=== PATIENT | female | born 1965 | race Caucasian/White ===

== ENCOUNTER → 2019-06-12 14:14 | Outpatient (CLI) | payer BC, SELFPAY ==
[2019-06-12 12:11] VITALS: BMI 25.8
== END ==
PROVIDERS: Family Provider Family Medicine; PCP Family Medicine; Referring Provider Physician Assistant; Visit Provider Physician Assistant
DX: L03.113 Cellulitis of right upper limb (principal)
CPT/HCPCS: 87070; 87077; 87186; 87205

== ENCOUNTER → 2023-09-03 | Outpatient (CLI) | payer OTHER, SELFPAY ==
--- OUTSIDE RECORDS SUMMARY | 2023-08-27 07:52 | XMS RPT_ITS | CCD ---
Author Name Unknown Address [id number] [place] [address] Organization [facility] Care Team Providers Care Catalyst Operator Name Role Phone [email or web address], physician Unavailable Unavailable Torrey Kenyon Unavailable Unavailable Torrey Kenyon Unavailable Unavailable KEDAR QUEEN, DR CARY Primary Care Physician ([phone] ) KEDAR DO, DR CARY Primary Care Physician ([phone] ) KEDAR DO, DR CARY Primary Care Physician ([phone] JOHN RENE MD Attending Unavailable KEDAR DO, DR CARY Primary Care Unavailable JOHN RENE MD Attending Unavailable KEDAR DO, DR CARY Primary Care Unavailable AZAEL LARSON PA-C Attending Unavailable KEDAR DO, DR CARY Primary Care Unavailable KEDAR DO, DR CARY Attending Unavailable KEDAR DO, DR CARY Primary Care Unavailable KEDAR DO, DR CARY Attending Unavailable KEDAR DO, DR CARY Primary Care Unavailable KEDAR DO, DR CARY Attending Unavailable KEDAR DO, DR CARY Primary Care Unavailable KEDAR DO, DR CARY Attending Unavailable KEDAR DO, DR CARY Primary Care Unavailable LAINE CORONA, DR TEJADA Attending Unavailabl e KEDAR DO, DR CARY Primary Care Unavailable DARCI ARELLANO-BRAD, BRITT Skelton Attending [place] vailable KEDAR QUEEN, DR CARY Primary Care Unavailable JOHN RENE MD Attending Unavailable KEDAR , DR CARY Primary Care Unavailable Medications Current Medications Medication Drug Class(es) Dates Sig (Normalized) Sig (Original) acetaminophen 325 mg / butalbital 50 mg / caffeine 40 mg oral tablet (5 sources) Barbiturate, Central Nervous System Stimulant, Methylxanthine Start: 01-20-2023 APAP/butalbital/ca ffeine 325-50-40 mg oral tablet (Fioricet) TAKE 1 CAPSULE BY MOUTH NEEDED AT THE ONSET OF MIGRAINE. MAY REPEAT IN 8 HOURS. DO NOT TAKE MORE THAN 2 CAPSULES IN 24 HOURS OR MORE THAN 10 CAPSULES PER MONTH. Start Date: 01/20/23 Status: Ordered Ajovy Autoinjector 225 mg/1.5 mL subcutaneous solution (1 source) Start: 10-28-2021 inject 225 mg by subcutaneous injection every month Ajovy Autoinjector 225 mg/1.5 mL subcutaneous solution INJECT 225 MG EVERY MONTH BY SUBCUTANEOUS ROUTE. Start Date: 10/28/21 Status: Ordered amitriptyline hydrochloride 50 mg oral tablet (11 sources) Tricyclic Antidepressant Start: 03-10-2022 amitriptyline 50 mg oral tablet Dose : 50 mg = 1 tab(s), Oral, qHS, 0 Refill(s) Start Date: 03/10/22 Status: Ordered Completed/Discontinued Medications Medication Drug Class(es) Dates Sig (Normalized) Sig (Original) gabapentin 300 mg oral capsule (8 sources) Anti-epileptic Agent Start: 09-09-2022 End: 03-08-2023 gabapentin 300 mg oral capsule Dose : 300 mg = 1 cap(s), Oral, BID, # 60 cap(s), 5 Refill(s), Pharmacy: [facility], Cervical spondylosis without myelopathy, 172, cm, 09/09/22 7:49:00 EST, Height, 84.1, kg, 09/09/22 7:49:00 EST, Dosing Weight Start Date: 09/09/22 Stop Date: 03/08/23 Status: Ordered Problems Problem Classification Problem Date Documented Da te Episodic/Chronic Abdominal hernia (13 sources) Hiatal hernia 10-24-2020 Episodic Anxiety disorders (13 sources) Anxiety 04-07-2019 Chronic Chronic kidney disease (13 sources) Chronic kidney disease stage 3 10-24-2020 Chronic Diabetes mellitus without complication (13 sources) Hyperglycemia 06-06-2020 Episodic Disorders of lipid metabolism (13 sources) Hyperlipidemia 02-18-2021 Chronic Headache; including migraine (13 sources) Migraine 04-07-2019 Chronic Miscellaneous mental health disorders (13 sources) Primary insomnia 04-07-2019 Chronic Mood disorders (13 sources) Depressive disorder; Translations: [Major depression in remission] 04-07-2019 Chronic Other acquired deformities (12 sources) Stenosis of intervertebral foramina 10-28-2021 Episodic Other and unspecified benign neoplasm (13 sources) Lipoma (clinical) 03-28-2020 Episodic Other bone disease and musculoskeletal deformities (5 sources) Cervical somatic dysfunction 01-27-2023 Episodic Other bone disease and musculoskeletal deformities (5 sources) Somatic dysfunction of rib 01-27-2023 Episodic Other bone disease and musculoskeletal deformities (5 sources) Somatic dysfunction of thoracic region 01-27-2023 Episodic Other bone disease and musculoskeletal deformities (5 sources) Somatic dysfunction of upper limb 01-27-2023 Episodic Other gastrointestinal disorders (13 sources) Dysphagia 06-06-2020 Episodic Other nervous system disorders (13 sources) Carpal tunnel syndrome 04-07-2019 Chronic Other nervous system disorders (1 source) Carpal tunnel syndrome of left wrist; Translations: [Carpal tunnel syndrome, left upper limb] Chronic Other nutritional; endocrine; and metabolic disorders (5 sources) Overweight 01-27-2023 Episodic Other nutritional; endocrine; and metabolic disorders (5 sources) Overweight in adulthood with body mass index of 25 or more but less than 30 01-27-2023 Episodic Residual codes; unclassified (1 source) Past history of procedure; Translations: [Other specified postprocedural states] Episodic Screening and history of mental health and substance abuse codes (5 sources) Tobacco use and exposure - finding 01-27-2023 Chronic Spondylosis; intervertebral disc disorders; other back problems (17 sources) Cervical spondylosis without myelopathy; Translations: [Degeneration of cervical intervertebral disc] 10-28-2021 Chronic Spondylosis; intervertebral disc disorders; other back problems (20 sources) Low back pain; Translations: [Neck pain] Onset: 03-15-2023 02-18-2021 Episodic Results Test Name Value Interpretation Reference Range Facil ity Vital Signs Date Time Vital Sign Value Performing Clinician Faci lity 04-23-2023 09:02-0400 Diastolic Blood Pressure Non-Invasive [address] MALLORY JANG MD [facility] 04-23-2023 09:02-0400 Heart rate 75 /min DR MALLORY JANG MD [facility] 04-23-2023 09:02-0400 Respiratory rate 16 /min DR MALLORY JANG MD [facility] 04-23-2023 09:02-0400 Systolic Blood Pressure Non-Invasive [address] MALLORY JANG MD [facility] 04-23-2023 08:57-0400 Body temperature 97.7 [degF] DR MALLORY JANG MD [facility] 04-23-2023 08:57-0400 Diastolic Blood Pressure Non-Invasive [address] MALLORY JANG MD [facility] 04-23-2023 08:57-0400 Heart rate 75 /min DR MALLORY JANG MD [facility] 04-23-2023 08:57-0400 Respiratory rate 18 /min DR MALLORY JANG MD [facility] 04-23-2023 08:57-0400 Systolic Blood Pressure Non-Invasive [address] MALLORY JANG MD [facility] 04-23-2023 08:50-0400 Diastolic Blood Pressure Non-Invasive [address] MALLORY JANG MD [facility] 04-23-2023 08:50-0400 Heart rate 73 /min DR MALLORY JANG MD [facility] 04-23-2023 08:50-0400 Respiratory Rate - Anes 15 br/min DR MALLORY JANG MD [facility] 04-23-2023 08:50-0400 Systolic Blood Pressure Non-Invasive [address] MALLORY JANG MD [facility] 04-23-2023 08:45-0400 Respiratory Rate - Anes 16 br/min DR MALLORY JANG MD [facility] 04-23-2023 08:40-0400 Respiratory Rate - Anes 15 br/min DR MALLORY JANG MD [facility] 04-23-2023 07:47-0400 Body height 172.[address] MALLORY JANG MD [facility] 04-23-2023 07:47-0400 Body temperature 98.42 [degF] DR MALLORY JANG MD [facility] 04-23-2023 07:47-0400 Body weight 84.[address] MALLORY JANG MD [facility] 04-23-2023 07:47-0400 Heart rate 110 /min DR MALLORY JANG MD [facility] 04-23-2023 07:47-0400 Respiratory rate 15 /min DR MALLORY JANG MD [facility] 03-15-2023 11:55-0400 Diastolic Blood Pressure Non-Invasive 77 1 JOHN RENE MD [facility] 03-15-2023 11:55-0400 Heart rate 82 /min JOHN RENE MD [facility] 03-15-2023 11:55-0400 Respiratory rate 18 /min JOHN RENE MD [facility] 03-15-2023 11:55-0400 Systolic Blood Pressure Non-Invasive 142 1 JOHN RENE MD [facility] 03-15-2023 11:24-0400 Blood Pressure Cuff Size JOHN RENE MD [facility] 03-15-2023 11:24-0400 Blood Pressure Location JOHN RENE MD [facility] 03-15-2023 11:24-0400 Blood Pressure Method JOHN RENE MD [facility] 03-15-2023 11:24-0400 Body height 172.7 cm JOHN RENE MD [facility] 03-15-2023 11:24-0400 Body temperature 97.16 [degF] JOHN RENE MD [facility] 03-15-2023 11:24-0400 Body weight 84.1 kg JOHN RENE MD [facility] 03-15-2023 11:24-0400 Body weight 28.2 kg/m2 JOHN RENE MD [facility] 03-15-2023 11:24-0400 Diastolic Blood Pressure Non-Invasive 99 1 JOHN RENE MD [facility] 03-15-2023 11:24-0400 Heart rate 86 /min JOHN RENE MD [facility] 03-15-2023 11:24-0400 Respiratory rate 19 /min JOHN RENE MD [facility] 03-15-2023 11:24-0400 Systolic Blood Pressure Non-Invasive 146 1 JOHN RENE MD [facility] Encounters Encounter Date Encounter Type Care Provider Facility Start: 07-20-2023 End: 07-21-[address] RAEANN THACKER DO Facility:B Start: 07-20-2023 End: 07-20-[address] RAEANN THACKER DO [facility] Start: 07-02-2023 End: 07-03-[address] RAEANN THACKER DO Facility:[facility] Start: 07-02-2023 End: 07-02-[address] RAEANN THACKER DO [facility] Start: 06-08-2023 End: 07-14-2023 ambulatory AZAEL LARSON PA-C Facility:[facility] Start: 04-23-2023 End: 04-23-[address] MALLORY JANG MD Facility:[facility] Start: 04-23-2023 End: 04-23-[address] MALLORY JANG MD [facility] Start: 03-15-2023 End: 03-16-[address] RAEANN THACKER DO Facility:[facility] Start: 03-15-2023 End: 03-15-2023 SAME DAY STAY JOHN RENE MD [facility] Start: 02-15-2023 End: 02-16-2023 ambulatory JOHN RENE MD Facility:[facility] Start: 01-20-2023 End: 01-21-2023 ambulatory JOHN RENE MD Facility:[facility] Start: 09-09-2022 End: 09-10-2022 ambulatory BRITT BEJARANO [employer] REPA[employer] Facility:[facility] Start: 09-08-2022 End: 09-09-[address] RAEANN THACKER DO Facility:[facility] Start: 09-08-2022 End: 09-09-[address] RAEANN THACKER DO [facility] Start: 06-27-2022 End: 06-27-[address] RAEANN THACKER DO [facility] Start: 03-10-2022 End: 03-10-2022 Patient encounter procedure ALANA PATEL MD [facility] Start: 03-06-2022 End: 03-06-[address] RAEANN THACKER DO [facility] Start: 12-09-2021 End: 12-09-2021 Patient encounter procedure ALANA PATEL MD [facility] Start: 10-28-2021 End: 10-28-2021 Patient encounter procedure ALANA PATEL MD [facility] Start: 10-14-2021 End: 10-14-2021 Patient encounter procedure YOVANI PHILLIPS DO [facility] Start: 06-28-2017 Ambulatory physician [facility] Procedures Date Procedure Procedure Detail Performing Clinician Start: 06-24-2023 Carpal tunnel syndro me of right wrist (disorder) DR RAEANN THACKER DO Start: 06-08-2023 End: 07-14-2023 Occupational therapy AZAEL LARSON PA-C Start: 05-06-2023 Carpal tunnel syndro me of left wrist (disorder) DR RAEANN THACKER DO Start: 03-15-2023 PM Inj Spine C/T [facility] 1 JOHN RENE MD Immunizations Immunization Date Immunization Notes Care Provider [facility] 06-04-2023 influenza virus vaccine, unspecified formulation DR RAEANN THACKER DO [facility] 06-04-2023 SARS-CoV-2 (COVID-19 ) [id number] DR RAEANN THACKER DO [facility] 05-25-[address] RAEANN THACKER DO [facility] 03-26-[address] RAEANN THACKER DO [facility] 09-11-2022 COVID-19, mRNA, LNP- S, bivalent booster, PF, 30 mcg/0.3 mL dose; Translations: [[employer] COVID-19 (12y+) Bivalent Booster Vaccine PF] JOHN RENE MD [facility] 07-22-2022 influenza virus vaccine, unspecified formulation DR RAEANN THACKER DO [facility] 03-17-2022 COVID-19, mRNA, LNP- S, PF, 100 mcg or 50 mcg dose; Translations: [Moderna COVID-19 Vaccine] DR RAEANN THACKER DO [facility] 09-02-2021 SARS-CoV-2 (COVID-19 ) mRNA-1273 vaccine YOVANI PHILLIPS DO [facility] 11-27-2020 SARS-CoV-2 (COVID-19 ) mRNA-1273 vaccine YOVANI PHILLIPS DO [facility] 10-30-2020 SARS-CoV-2 (COVID-19 ) mRNA-1273 vaccine YOVANICYNTHIA PHILLIPS DO [facility] Payers Date Payer Category Payer Unknown [id number] 1965 Unknown [id number] 2.16.8 [id number] 1965 Unknown [id number] 2.16.8 [id number] 1965 Unknown [id number] 2.16.8 [id number] 1965 Unknown [id number] 2.16.8 [id number] 1965 Unknown [id number] 2.16.8 [id number] 1965 Unknown [id number] 2.16.8 [id number] 1965 Unknown [id number] 2.16.8 [id number] 1965 Unknown [id number] 2.16.8 [id number] 1965 Unknown [id number] 2.16.8 [id number] 1965 Unknown [id number] 2.16.8 [id number] Private Health Insurance Social History Date Type Detail Facility Start: 08-02-2019 Never smoked tobacco (f inding) [facility] Functional Status Date Assessment Result Facility 04-23-2023 Functional Status Repositioned back [facility] 04-23-2023 Functional Status Maintained [facility] 03-15-2023 Functional Status Awake [facility] Mental Status Date Assessment Result Facility 04-23-2023 Mental Status Oriented x 4 [facility] 03-15-2023 Mental Status Oriented x 4 [facility] Clinical Notes 03-15-2023 to 07-20-2023 Radiology Note Date & Type Note Facility 07-20-2023 Evaluation + Plan note Future Scheduled TestsCT Coronary Calcium Score w/o Contrast [facility] H[facility] AN D PHYSICIAL CHIEF COMPLAINT: HISTORY OF PRESENT ILLNESS: REVIEW OF SYSTEMS: ACTIVE PROBLEMS: (24) Anxiety (04562220) BMI 29.0-29.9,adult (1126880462) Carpal tunnel syndrome (41105400) Cervical spondylosis without myelopathy (592579106) Cervical stenosis of spine (110071244) CKD (chronic kidney disease) stage 3, GFR 30-59 ml/min (6371174377) DDD (degenerative disc disease), cervical (567223495) Dysphagia (61338004) Hiatal hernia (972673505) HLD (hyperlipidemia) (87508732) Hyperglycemia (964729149) Lipoma (019511479) Low back pain (331673872) Major depressive disorder in remission (44879123) Migraine (78905597) Neck pain (625000061) Neural foraminal stenosis of cervical spine (1422324456) Non-tobacco user (0265740785) Overweight (840438708) Primary insomnia (5174447) Somatic dysfunction of cervical region (7202938306) Somatic dysfunction of rib region (5186386036) Somatic dysfunction of thoracic region (0394835114) Somatic dysfunction of upper extremity (1996188973) MEDICATIONS: Active Inpt Meds: None Active PRN Meds: None One Time Meds: (Completed) lidocaine (Xylocaine-MPF 2% injectable solution (ANES)) Intravenous, Once, Stop: 04/23/23 8:36:00 EDT (Completed) propofol (propofol (ANES)) IV Push, Once, Stop: 04/23/23 8:36:00 EDT Active IV Meds: Lactated Ringers Infusion 1,000 mL (LR 1,000 mL) Start: 04/23/23 7:53:00 EDT, Rate: 50 mL/hr, 04/23/23 7:53:00 EDT ALLERGIES: (1) NKA FAMILY HISTORY: SOCIAL HISTORY: PHYSICAL EXAM: VITALS: [id number](kg) 04/23 08:50----73--98.5--04/23 84.4 04/23 08:45----71--98.5-- 04/23 08:40----73--98.8-- 04/23 08:35----76--99.1-- 04/23 08:30----81--100-- 24 Hr Tmax: 36.9 at 04/23 07:47 36 Hr Tmax: 36.9 at 04/23 07:47 Vital Signs are the last 5 in the past 48 hours. Weights display the last 5 within 7 days. Initial Wt: 04/23 84.4 kg 186 lb Current Wt: 04/23 84.4 kg 186 lb GENERAL: HEENT: CARDIOVASCULAR: RESPIRATORY: ABDOMEN: EXREMETIES: NEUROLOGICAL: PSYCHIATRIC: LABS: No 36hr Lab Data DIAGNOSTICS: IMPRESSION: PLAN: History and Physical Update I have examined the patient; reviewed the H&P and there are no changes to the H&P unless noted below. Future Appointments Appointment Date:06/28/2023 03:30:00 PM Scheduled Provider: Location:[facility] Appointment Type:MA Mammogram Screening Bilateral w/ Lenny Appointment Date:08/27/2023 08:30:00 AM Scheduled Provider:RAEANN THACKER DO Location:[facility] Appointment Type:[facility] Future Scheduled Tests Laboratory* Thyroid Stimulating Hormone 09/26/23 * A1C Hemoglobin 09/26/23 * Complete Blood Count 09/26/23 * Lipid Profile 09/26/23 * Vitamin D Level 09/26/23 * Complete Metabolic Panel 09/26/23 Radiology* MA Mammo Screening Bilateral w/ Lenny 06/28/23 [facility] 08-25-2023 Hospital Discharge instructions Patient Education 04/23/2023 09:06:53 Monitored Anesthesia Care, Care After Monitored Anesthesia Care, Care After These instructions provide you with information about caring for yourself after your procedure. Your health care provider may also give you more specific instructions. Your treatment has been plannedaccording to current medical practices, but problems sometimes occur. Call your health care provider if you have any problems or questions after your procedure. What can I expect after the procedure? After your procedure, you may: Feel sleepy for several hours. Feel clumsy and have poor balance for several hours. Feel forgetful about what happened after the procedure. Have poor judgment for several hours. Feel nauseous or vomit. Have a sore throat if you had a breathing tube during the procedure. Follow these instructions at home: For at least 24 hours after the procedure: Have a responsible adult stay with you. It is important to have someone help care for you until youare awake and alert. Rest as needed. Do not: ?Participate in activities in which you could fall or become injured. ?Drive. ?Use heavy machinery. ?Drink alcohol. ?Take sleeping pills or medicines that cause drowsiness. ?Make important decisions or sign legal documents. ?Take care of children on your own. Eating and drinking Follow the diet that is recommended by your health care provider. If you vomit, drink water, juice, or soup when you can drink without vomiting. Make sure you have little or no nausea before eating solid foods. General instructions Take odxu-ouo-wlextsk and prescription medicines only as told by your health care provider. If you have sleep apnea, surgery and certain medicines can increase your risk for breathing problems. Follow instructions from your health care provider about wearing your sleep device: ?Anytime you are sleeping, including during daytime naps. ?While taking prescription pain medicines, sleeping medicines, or medicines that make you drowsy. If you smoke, do not smoke without supervision. Keep all follow-up visits as told by your health care provider. This is important. Contact a health care provider if: You keep feeling nauseous or you keep vomiting. You feel light-headed. You develop a rash. You have a fever. Get help right away if: You have trouble breathing. Summary For several hours after your procedure, you may feel sleepy and have poor judgment. Have a responsible adult stay with you for at least 24 hours or until you are awake and alert. This information is not intended to replace advice given to you by your health care provider. Make sure you discuss any questions you have with your health care provider. Document Released: 12/06/2016 Document Revised: 11/14/2018 Document Reviewed: 12/06/2016 [employer] Patient Education 2020 [employer]. 04/23/2023 09:06:50 Colonoscopy, Adult, Care After Colonoscopy, Adult, Care After This sheet gives you information about how to care for yourself after your procedure. Your health care provider may also give you more specific instructions. If you have problems or questions, contact your health care provider. What can I expect after the procedure? After the procedure, it is common to have: A small amount of blood in your stool for 24 hours after the procedure. Some gas. Mild abdominal cramping or bloating. Follow these instructions at home: General instructions For the first 24 hours after the procedure: ?Do not drive or use machinery. ?Do not sign important documents. ?Do not drink alcohol. ?Do your regular daily activities at a slower pace than normal. ?Eat soft, isup-ke-jcthdn foods. Take wtuu-yzd-uawxenw or prescription medicines only as told by your health care provider. Relieving cramping and bloating Try walking around when you have cramps or feel bloated. Apply heat to your abdomen as told by your health care provider. Use a heat source that your healthcare provider recommends, such as a moist heat pack or a heating pad. ?Place a towel between your skin and the heat source. ?Leave the heat on for 20 30 minutes. ?Remove the heat if your skin turns bright red. This is especially important if you are unable to feel pain, heat, or cold. You may have a greater risk of getting burned. Eating and drinking Drink enough fluid to keep your urine pale yellow. Resume your normal diet as instructed by your health care provider. Avoid heavy or fried foods thatare hard to digest. Avoid drinking alcohol for as long as instructed by your health care provider. Contact a health care provider if: You have blood in your stool 2 3 days after the procedure. Get help right away if: You have more than a small spotting of blood in your stool. You pass large blood clots in your stool. Your abdomen is swollen. You have nausea or vomiting. You have a fever. You have increasing abdominal pain that is not relieved with medicine. Summary After the procedure, it is common to have a small amount of blood in your stool. You may also have mild abdominal cramping and bloating. For the first 24 hours after the procedure, do not drive or use machinery, sign important documents, or drink alcohol. Contact your health care provider if you have a lot of blood in your stool, nausea or vomiting, a fever, or increased abdominal pain. This information is not intended to replace advice given to you by your health care provider. Make sure you discuss any questions you have with your health care provider. Document Released: 03/30/2005 Document Revised: 06/08/2018 Document Reviewed: 10/27/2016 [employer] Patient Education 2020 [employer]. Follow Up Care 04/19/2023 12:09:25 With:MALLORY JANG MD [address] [facility] [address] [place] [address] [phone] When: only if needed [facility] 08-25-2023 Summary of episode note Discharge Instructions Thank you for allowing [facility] to assist you with your healthcare needs. The following is importantdischarge information regarding your hospital visit. Your Care Team RAEANN THACKER DO What to do next Scheduled Follow-Up Appointments Appointment Type When With Where Contact InformationMA Mammogram Screening Bilateral w/ Lenny 06/28/2023 03:30 PM EDT [facility] [phone] PC OV 08/27/2023 08:30 AM EST RAEANN THACKER DO [facility] [address] [id number] Follow Up Appointments Follow Up with MALLORY JANG MD When Only if needed [facility] [address] [facility] [address] [place] [address] [phone] The Following Activity and Diet Have Been Ordered for You Discharge Activity - Ordered -- NO activity restrictions, 04/23/23 8:54:00 EDT Discharge Diet - Ordered -- Follow the post-operative/post-procedure diet instructions provided by your physician's office.,04/23/23 8:54:00 EDT The Following Equipment Has Been Ordered for You Discharge Home Equipment Discharge Wound Care - Ordered -- Follow the post-operative/post-procedure wound care instructions provided by your physician's office., 04/23/23 8:54:00 EDT Someone Will Contact You Regarding These Home Health Referrals No home referrals have been ordered for you. No one will call you. Allergies NKA Medications Please ask your primary doctor or pharmacist before taking any other medication not listed, including over the counter drugs, herbal medications, vitamins and or supplements as they may interact withyour home medications. What How Much When Instructions Last Dose Unchanged amitriptyline (amitriptyline 50 mg oral tablet) 1 tab(s) by mouth Daily at bedtime Unchanged APAP/ butalbital/ caffeine (APAP/ butalbital/ caffeine 325-50-40 mg oral tablet (Fioricet)) TAKE 1 CAPSULE BY MOUTH NEEDED AT THE ONSET OF MIGRAINE. MAY REPEAT IN 8 HOURS. DO NOT TAKE MORETHAN 2 CAPSULES IN 24 HOURS OR MORE THAN 10 CAPSULES PER MONTH. Unchanged fremanezumab (Ajovy Autoinjector 225 mg/ 1.5 mL subcutaneous solution) 225 Milligram Subcutaneous Once a month Unchanged pantoprazole (pantoprazole 40 mg oral enteric coated tablet) 1 tab(s) by mouth Once a day Unchanged SUMAtriptan (sumatriptan 20 mg/ inh nasal spray) 1 spray(s) in the nose Once a day as needed for for migraine headache May repeat in 2hrs. Not to exceed 40mg/ day. Please take this list to your next doctor s visit. Bring all medications you take, including over the counter medications, herbals and other supplements with you to your doctor s visit. Patients and families are reminded to discard old lists and to update any records with all medication providers or retail pharmacies. Education Materials Monitored Anesthesia Care, Care After These instructions provide you with information about caring for yourself after your procedure. Your health care provider may also give you more specific instructions. Your treatment has been plannedaccording to current medical practices, but problems sometimes occur. Call your health care provider if you have any problems or questions after your procedure. What can I expect after the procedure? After your procedure, you may: Feel sleepy for several hours. Feel clumsy and have poor balance for several hours. Feel forgetful about what happened after the procedure. Have poor judgment for several hours. Feel nauseous or vomit. Have a sore throat if you had a breathing tube during the procedure. Follow these instructions at home: For at least 24 hours after the procedure: Have a responsible adult stay with you. It is important to have someone help care for you until youare awake and alert. Rest as needed. Do not: ? Participate in activities in which you could fall or become injured. ? Drive. ? Use heavy machinery. ? Drink alcohol. ? Take sleeping pills or medicines that cause drowsiness. ? Make important decisions or sign legal documents. ? Take care of children on your own. Eating and drinking Follow the diet that is recommended by your health care provider. If you vomit, drink water, juice, or soup when you can drink without vomiting. Make sure you have little or no nausea before eating solid foods. General instructions Take soyd-aeq-cygrqqh and prescription medicines only as told by your health care provider. If you have sleep apnea, surgery and certain medicines can increase your risk for breathing problems. Follow instructions from your health care provider about wearing your sleep device: ? Anytime you are sleeping, including during daytime naps. ? While taking prescription pain medicines, sleeping medicines, or medicines that make you drowsy. If you smoke, do not smoke without supervision. Keep all follow-up visits as told by your health care provider. This is important. Contact a health care provider if: You keep feeling nauseous or you keep vomiting. You feel light-headed. You develop a rash. You have a fever. Get help right away if: You have trouble breathing. Summary For several hours after your procedure, you may feel sleepy and have poor judgment. Have a responsible adult stay with you for at least 24 hours or until you are awake and alert. This information is not intended to replace advice given to you by your health care provider. Make sure you discuss any questions you have with your health care provider. Document Released: 12/06/2016 Document Revised: 11/14/2018 Document Reviewed: 12/06/2016 [employer] Patient Education 2020 [employer] Colonoscopy, Adult, Care After This sheet gives you information about how to care for yourself after your procedure. Your health care provider may also give you more specific instructions. If you have problems or questions, contact your health care provider. What can I expect after the procedure? After the procedure, it is common to have: A small amount of blood in your stool for 24 hours after the procedure. Some gas. Mild abdominal cramping or bloating. Follow these instructions at home: General instructions For the first 24 hours after the procedure: ? Do not drive or use machinery. ? Do not sign important documents. ? Do not drink alcohol. ? Do your regular daily activities at a slower pace than normal. ? Eat soft, lcpg-wr-bjwzej foods. Take wkgy-qrv-dzgibkc or prescription medicines only as told by your health care provider. Relieving cramping and bloating Try walking around when you have cramps or feel bloated. Apply heat to your abdomen as told by your health care provider. Use a heat source that your healthcare provider recommends, such as a moist heat pack or a heating pad. ? Place a towel between your skin and the heat source. ? Leave the heat on for 20 30 minutes. ? Remove the heat if your skin turns bright red. This is especially important if you are unable to feel pain, heat, or cold. You may have a greater risk of getting burned. Eating and drinking Drink enough fluid to keep your urine pale yellow. Resume your normal diet as instructed by your health care provider. Avoid heavy or fried foods thatare hard to digest. Avoid drinking alcohol for as long as instructed by your health care provider. Contact a health care provider if: You have blood in your stool 2 3 days after the procedure. Get help right away if: You have more than a small spotting of blood in your stool. You pass large blood clots in your stool. Your abdomen is swollen. You have nausea or vomiting. You have a fever. You have increasing abdominal pain that is not relieved with medicine. Summary After the procedure, it is common to have a small amount of blood in your stool. You may also have mild abdominal cramping and bloating. For the first 24 hours after the procedure, do not drive or use machinery, sign important documents, or drink alcohol. Contact your health care provider if you have a lot of blood in your stool, nausea or vomiting, a fever, or increased abdominal pain. This information is not intended to replace advice given to you by your health care provider. Make sure you discuss any questions you have with your health care provider. Document Released: 03/30/2005 Document Revised: 06/08/2018 Document Reviewed: 10/27/2016 [employer] Patient Education 2020 [employer]. Additional Information VACCINATE! IT SAVES LIVES! Members of the community who have not yet received the COVID-19 vaccine and would like to receive it can visit one of [facility] vaccine clinics. There are many vaccine clinic locations within the [facility]. For locations and available times, please visit https://gettheshot.coronavirus.[place].gov/. It is important to note that some COVID mobile vaccine clinics are held outdoors and may be canceled in rainy or stormy conditions. To learn more about pediatric vaccinations (ages 5-11), we invite you to visit the [facility] webpage. https://www.[facility].org/pages/4530-[place]-Pwahmigoink-Hkfbzinpdm-Leipl-Vgx stions.htmlTo learn more about the COVID-19 vaccine, we invite you to visit the CDC website for a list of frequently asked questions.https://www.cdc.gov/coronavirus/2019-ncov/vaccines/faq.html [employer] Patient Portal Access Instructions: Stay connected with your healthcare team and access your personal medical information anytime with the [employer] Patient Portal. Please follow the directions below to create your [employer] account: 1.Access the email account you provided upon registration to the hospital/physician office.2.Look for an invitation email from [facility].3.Open the email and access the invitation link: AcceptInvitation to [employer].4.Fill in the required irizarry to create your account. To access your account, visit [email or web address][email or web address]. Click the blue button labeled Access Patient Portal and then log in with the username and password that you created in the steps above. You will be able to view your test results, lab results, a summary of your visits, upcoming appointments and more. There is also a convenient messaging option where you can send secure messages to your p Wedding [employer]. In addition, you will have the ability to download any documents or summaries to your computer and/or send the information securely to a physician. Remember that your healthcare information is confidential, so carefully consider who you will allowto register on the [employer] Patient Portal for access to your information. You can also access the [employer] Patient Portal on the [employer]acquie. Simply click on Patient Portal and then log into your account. If you would like to receive a full copy of your medical records, please contact the [facility] Medical Records Department by calling [phone], Wednesday through Wednesday between 8 a.m. and 4:30 p.m. HOW TO SAFELY DISPOSE OF PRESCRIPTION MEDICATIONS Please use one of the following methods to safely dispose of your unused medications. 1.Use a drug disposal kit: the drug disposal pouch allows you to safely discard your old and unuseddrugs. Ask your nurse to give you one when you are discharged.2.Visit a local take-back location: Many local pharmacies and police departments have programs that collect old and unwanted prescriptiondrugs. Call your local pharmacy or go to http://Workube.OurCrowd/3P8Hl4y to find one close to you.3.Make use of household items: Use cat litter or old coffee grounds to dispose medications if other options arenot available. Mix your drugs with these household products, seal them in an airtight container andthrow it into the garbage. Call [facility]: [phone] to be sure your drugs can be disposed of in this way. Some medicines may require a different approach.4.Never flush your medications down the toilet. IF YOU HAVE BEEN PRESCRIBED AN OPIOID FOR PAIN If you have been prescribed an opioid (such as hydrocodone, oxycodone or morphine), it is critical to understand the possible side effects and risks of opioid pain medications. Even when taken as directed, opioids can have several side effects including: Tolerance, meaning you might need to take more of a medication for the same pain relief. Nausea, vomiting and/or constipation. Sleepiness, dizziness, dry mouth, confusion, depression or itching. Physical dependence, meaning you have withdrawal symptoms when a medication is stopped, can develop within a few days. KNOW YOUR RESPONSIBILITIES It is important to know exactly how much and how often to take the opioid pain medications you are prescribed. Never take opioids in higher amounts or more often than prescribed. Do not combine opioids with alcohol or other drugs that cause drowsiness, such as benzodiazepines, also known as benzos, including diazepam and alprazolam, muscle relaxants or sleep aids. Never sell or share prescription opioids. This is illegal. Store opioids in a secure place and out of reach of others (including children, family, friends and visitors). The last page of this document has been signed and retained as a CHART COPY. Signatures Patient Education Materials Monitored Anesthesia Care, Care After Colonoscopy, Adult, Care After Medication Leaflets My discharge plan and instructions have been reviewed and explained to me and I,ASHELY GRAVES understand my current condition and have read and understand these discharge instructions. I have received a written copy of the plan/instructions. If I have questions, I am aware that I should contact my doctor. 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 Mental status: at preoperative baseline, alert & oriented x 4. Respiratory function: lungs are clear to auscultation. Respiratory support: none. CV function: Normal rate. Cardiovascular support: none. Pain. Nausea status: denies nausea. Postoperative hydration status: within normal limits. Digitally Signed by RICHMOND GILMORE on 04/23/2023 09:01 AM [facility]08-25-2023 Note [place] ADMISSION HISTORY AND PHYSICIAL CHIEF COMPLAINT: HISTORY OF PRESENT ILLNESS: REVIEW OF SYSTEMS: ACTIVE PROBLEMS: (24) Anxiety (43524376) BMI 29.0-29.9,adult (0235426818) Carpal tunnel syndrome (87043376) Cervical spondylosis without myelopathy (534335984) Cervical stenosis of spine (880027623) CKD (chronic kidney disease) stage 3, GFR 30-59 ml/min (0774545261) DDD (degenerative disc disease), cervical (088424083) Dysphagia (81046551) Hiatal hernia (393692732) HLD (hyperlipidemia) (33353104) Hyperglycemia (991190120) Lipoma (454381468) Low back pain (653248252) Major depressive disorder in remission (14729657) Migraine (83022351) Neck pain (761578021) Neural foraminal stenosis of cervical spine (5545908668) Non-tobacco user (5288505391) Overweight (562964890) Primary insomnia (1896327) Somatic dysfunction of cervical region (2287394162) Somatic dysfunction of rib region (8270517575) Somatic dysfunction of thoracic region (2326918696) Somatic dysfunction of upper extremity (5291407881) MEDICATIONS: Active Inpt Meds: None Active PRN Meds: None One Time Meds: (Completed) lidocaine (Xylocaine-MPF 2% injectable solution (ANES)) Intravenous, Once, Stop: 04/23/23 8:36:00 EDT (Completed) propofol (propofol (ANES)) IV Push, Once, Stop: 04/23/23 8:36:00 EDT Active IV Meds: Lactated Ringers Infusion 1,000 mL (LR 1,000 mL) Start: 04/23/23 7:53:00 EDT, Rate: 50 mL/hr, 04/23/23 7:53:00 EDT ALLERGIES: (1) NKA FAMILY HISTORY: SOCIAL HISTORY: PHYSICAL EXAM: VITALS: [id number]oKu(kg) 04/23 08:50----73--98.5--04/23 84.4 04/23 08:45----71--98.5-- 04/23 08:40----73--98.8-- 04/23 08:35----76--99.1-- 04/23 08:30----81--100-- 24 Hr Tmax: 36.9 at 04/23 07:47 36 Hr Tmax: 36.9 at 04/23 07:47 Vital Signs are the last 5 in the past 48 hours. Weights display the last 5 within 7 days. Initial Wt: 04/23 84.4 kg 186 lb Current Wt: 04/23 84.4 kg 186 lb GENERAL: HEENT: CARDIOVASCULAR: RESPIRATORY: ABDOMEN: EXREMETIES: NEUROLOGICAL: PSYCHIATRIC: LABS: No 36hr Lab Data DIAGNOSTICS: IMPRESSION: PLAN: History and Physical Update I have examined the patient; reviewed the H&P and there are no changes to the H&P unless noted below. Digitally Signed by MALLORY JANG MD on 04/23/2023 08:54 AM [facility]08-25-2023 Anesthesiology Consult note Patient: ASHELY GRAVES Age: 57 years Sex: Female : 1965 Associated Diagnoses: None Author: RICHMOND GILMORE Preoperative Information Time of last food or liquid consumption: 04/23/2023 05:00:00 Anesthesia history Patient's history: negative. Family's history: negative. Health Status Allergies: Allergic Reactions (Selected) NKA, Allergies (1) ActiveReaction NKANone Documented Current medications: (Selected) Outpatient Medications Ordered Moderna COVID-19 Vaccine 100 mcg/0.5 mL pf intramuscular susp: 50 mcg, 0.25 mL, Intramuscular, Once Documented Medications Documented APAP/butalbital/caffeine 325-50-40 mg oral tablet (Fioricet): TAKE 1 CAPSULE BY MOUTH NEEDED AT THE ONSET OF MIGRAINE. MAY REPEAT IN 8 HOURS. DO NOT TAKE MORE THAN 2 CAPSULES IN 24 HOURS OR MORE THAN 10 CAPSULES PER MONTH. Ajovy Autoinjector 225 mg/1.5 mL subcutaneous solution: 225 mg, Subcutaneous, qmonth, 0 Refill(s) amitriptyline 50 mg oral tablet: 50 mg, 1 tab(s), Oral, qHS, 0 Refill(s) pantoprazole 40 mg oral enteric coated tablet: 40 mg, 1 tab(s), Oral, qDay, 30 tab(s), 0 Refill(s) sumatriptan 20 mg/inh nasal spray: 1 spray(s), Nasal, qDay, May repeat in 2hrs. Not to exceed 40mg/day., PRN: for migraine headache, 1 EA, 0 Refill(s), No qualifying data available Problem list: Medical Anxiety / SNOMED CT 79449243 / Confirmed Carpal tunnel syndrome / SNOMED CT 67410373 / Confirmed Somatic dysfunction of cervical region / SNOMED CT 4711553964 / Confirmed Cervical spondylosis without myelopathy / SNOMED CT 919339911 / Confirmed CKD (chronic kidney disease) stage 3, GFR 30-59 ml/min / SNOMED CT 7025045240 / Confirmed DDD (degenerative disc disease), cervical / SNOMED CT 519208746 / Confirmed Dysphagia / SNOMED CT 55721125 / Confirmed Non-tobacco user / SNOMED CT 9836776107 / Confirmed Hiatal hernia / SNOMED CT 824917227 / Confirmed Hyperglycemia / SNOMED CT 141982888 / Confirmed HLD (hyperlipidemia) / SNOMED CT 85202158 / Confirmed Lipoma / SNOMED CT 859470672 / Confirmed Low back pain / SNOMED CT 183412703 / Confirmed Major depressive disorder in remission / SNOMED CT 89717637 / Confirmed Migraine / SNOMED CT 39352499 / Confirmed Neck pain / SNOMED CT 335852047 / Confirmed Overweight / SNOMED CT 129479728 / Confirmed BMI 29.0-29.9,adult / SNOMED CT 0505209826 / Confirmed Primary insomnia / SNOMED CT 7760643 / Confirmed Somatic dysfunction of rib region / SNOMED CT 2992144044 / Confirmed Somatic dysfunction of thoracic region / SNOMED CT 2313952891 / Confirmed Somatic dysfunction of upper extremity / SNOMED CT 2081842573 / Confirmed Cervical stenosis of spine / SNOMED CT 621390415 / Confirmed Neural foraminal stenosis of cervical spine / SNOMED CT 8445687508 / Confirmed, Active Problems (24) Anxiety BMI 29.0-29.9,adult Carpal tunnel syndrome Cervical spondylosis without myelopathy Cervical stenosis of spine CKD (chronic kidney disease) stage 3, GFR 30-59 ml/min DDD (degenerative disc disease), cervical Dysphagia Hiatal hernia HLD (hyperlipidemia) Hyperglycemia Lipoma Low back pain Major depressive disorder in remission Migraine Neck pain Neural foraminal stenosis of cervical spine Non-tobacco user Overweight Primary insomnia Somatic dysfunction of cervical region Somatic dysfunction of rib region Somatic dysfunction of thoracic region Somatic dysfunction of upper extremity Histories Past Medical History: Resolved Cervical radiculopathy (252781888): Resolved., migraines, GERD, CKD stage 3 Family History: Diabetes Father Procedure history: PM Inj Spine C/T With Imaging SN on 03/15/2023 at 57 Years. Comments: 03/15/2023 11:51 Nirmal Ramos RN auto-populated from documented surgical case Other ([id number]). 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 Dysphagia (69271083). 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 Social History Social & Psychosocial Habits Alcohol 03/26/2023 Use: Current Type: Wine Frequency: Daily Substance Abuse 03/26/2023 Use: Never Tobacco 03/26/2023 Tobacco Use: Never (less than 100 in l Comment: No Tobacco/Smoke Exposure - 08/02/2019 11:06 - Jina Ann [facility] Home/Environment 03/26/2023 Primary Food And Nutrition Teacher: Self 03/26/2023 Living situation: Home/Independent Primary Food And Nutrition Teacher: Lives alone Nutrition/Health 03/26/2023 Caffeine intake amount: coffee, 1 servings daily . Physical Examination No qualifying data available General: Alert and oriented. Airway: Normal temporomandibular joint mobility. Mallampati classification: III (soft palate, base of uvula visible). Head: Normocephalic. Dentition Evaluation: Intact, narrow mouth opening , full dentition. Neck: Supple. Respiratory: Lungs are clear to auscultation. Cardiovascular: Normal rate. Heart Sounds: Normal. Gastrointestinal: Soft. Musculoskeletal Normal range of motion. Integumentary: Intact. Neurologic: Alert, migraines. Review / Management Results review: No qualifying data available , Lab results 04/23/2023 7:42 EDT Allergies Yes Colon Prep Results Excellent Consent Form Signed Yes Patient Dressed In Hospital gown History & Physical Update On Chart Yes History & Physical On Chart Yes Bowel Prep Completed Yes NPO Status Maintained Allergy Band on and Verified No Patient ID Band on and Verified Yes Implants Verified Yes Pacemaker/AICD Verified Yes Anesthesia Consent Signed Yes Last Fluid Intake 04/23/2023 5:20 Last Food Intake 04/22/2023 13:00 Last Void 04/23/2023 7:43 . Assessment and Plan [place] [employer] Anesthesiologists (ASA) physical status classification: Class II. Anesthetic Preoperative Plan Premedication: None. Anesthetic technique: MAC. Postoperative pain management: Per surgeon. Risks discussed: nausea, vomiting, headache, sore throat, dental injury, hypotension, allergic reaction, serious complications. Informed consent: signed by patient. Digitally Signed by RICHMOND GILMORE APRN-SABINA on 04/23/2023 07:46 AM [facility]07-17-2023 Note ORIGINAL Images acquired, not reported on this accession number. [facility]07-17-2023 Note ORIGINAL Images acquired, not reported on this accession number.[facility]07-17-2023 Hospital Discharge instructions Patient Education 03/15/2023 11:57:27 Epidural Steroid Injection Epidural Steroid Injection An epidural steroid injection is a shot of steroid medicine and numbing medicine that is given intothe space between the spinal cord and the bones in your back (epidural space). The shot helps relieve pain caused by an irritated or swollen nerve root. The amount of pain relief you get from the injection depends on what is causing the nerve to be swollen and irritated, and how long your pain lasts. You are more likely to benefit from this injectionif your pain is strong and comes on suddenly rather than if you have had pain for a long time. Tell a health care provider about: Any allergies you have. All medicines you are taking, including vitamins, herbs, eye drops, creams, and mctf-sji-fyepuiy medicines. Any problems you or family members have had with anesthetic medicines. Any blood disorders you have. Any surgeries you have had. Any medical conditions you have. Whether you are or may be . What are the risks? Generally, this is a safe procedure. However, problems may occur, including: Headache. Bleeding. Infection. Allergic reaction to medicines. Damage to your nerves. What happens before the procedure? Staying hydrated Follow instructions from your health care provider about hydration, which may include: Up to 2 hours before the procedure you may continue to drink clear liquids, such as water, clear fruit juice, black coffee, and plain tea. Eating and drinking restrictions Follow instructions from your health care provider about eating and drinking, which may include: 8 hours before the procedure stop eating heavy meals or foods such as meat, fried foods, or fatty foods. 6 hours before the procedure stop eating light meals or foods, such as toast or cereal. 6 hours before the procedure stop drinking milk or drinks that contain milk. 2 hours before the procedure stop drinking clear liquids. Medicine You may be given medicines to lower anxiety. Ask your health care provider about: ?Changing or stopping your regular medicines. This is especially important if you are taking diabetes medicines or blood thinners. ?Taking medicines such as aspirin and ibuprofen. These medicines can thin your blood. Do not take these medicines before your procedure if your health care provider instructs you not to. General instructions Plan to have someone take you home from the hospital or clinic. What happens during the procedure? You may receive a medicine to help you relax (sedative). You will be asked to lie on your abdomen. The injection site will be cleaned. A numbing medicine (local anesthetic) will be used to numb the injection site. A needle will be inserted through your skin into the epidural space. You may feel some discomfort when this happens. An X-ray machine will be used to make sure the needle is put as close as possible to the affected nerve. A steroid medicine and a local anesthetic will be injected into the epidural space. The needle will be removed. A bandage (dressing) will be put over the injection site. What happens after the procedure? Your blood pressure, heart rate, breathing rate, and blood oxygen level will be monitored until themedicines you were given have worn off. Your arm or leg may feel weak or numb for a few hours. The injection site may feel sore. Do not drive for 24 hours if you received a sedative. This information is not intended to replace advice given to you by your health care provider. Make sure you discuss any questions you have with your health care provider. Document Released: 11/22/2008 Document Revised: 07/29/2018 Document Reviewed: 12/01/2016 [employer] Patient Education 2020 [employer]. [facility] 07-17-2023 Summary of episode note Discharge Instructions Thank you for allowing [facility] to assist you with your healthcare needs. The following is importantdischarge information regarding your hospital visit. Your Care Team RAEANN THACKER DO Your Diagnosis Cervical stenosis of spine What to do next Scheduled Follow-Up Appointments Appointment Type When With Where Contact InformationPC OV 03/26/2023 01:30 PM EDT RAEANN THACKER DO [facility] [address] [phone] PM OV 04/19/2023 02:30 PM EDT JOHN RENE MD [facility] Pain Management Allergies NKA Medications Please ask your primary doctor or pharmacist before taking any other medication not listed, including over the counter drugs, herbal medications, vitamins and or supplements as they may interact withyour home medications. What How Much When Why Instructions Last Dose Unchanged amitriptyline (amitriptyline 50 mg oral tablet) 1 tab(s) by mouth Daily at bedtime Unchanged APAP/ butalbital/ caffeine (APAP/ butalbital/ caffeine 325-50-40 mg oral tablet (Fioricet)) TAKE 1 CAPSULE BY MOUTH NEEDED AT THE ONSET OF MIGRAINE. MAY REPEAT IN 8 HOURS. DO NOT TAKE MORETHAN 2 CAPSULES IN 24 HOURS OR MORE THAN 10 CAPSULES PER MONTH. Unchanged fremanezumab (Ajovy Autoinjector 225 mg/ 1.5 mL subcutaneous solution) 225 Milligram Subcutaneous Once a month Unchanged gabapentin (gabapentin 300 mg oral capsule) 1 cap by mouth Two (2) times a day Cervical spondylosis without myelopathy Duration: 30 Days Unchanged pantoprazole (pantoprazole 40 mg oral enteric coated tablet) 1 tab(s) by mouth Once a day Unchanged SUMAtriptan (sumatriptan 20 mg/ inh nasal spray) 1 spray(s) in the nose Once a day as needed for for migraine headache May repeat in 2hrs. Not to exceed 40mg/ day. Unchanged traMADol (traMADol 50 mg oral tablet) 1 tab(s) by mouth Every 12 hours as needed for for pain Cervical spondylosis without myelopathy DDD (degenerative disc disease), cervical Duration: 30 Days Please take this list to your next doctor s visit. Bring all medications you take, including over the counter medications, herbals and other supplements with you to your doctor s visit. Patients and families are reminded to discard old lists and to update any records with all medication providers or retail pharmacies. Education Materials Epidural Steroid Injection An epidural steroid injection is a shot of steroid medicine and numbing medicine that is given intothe space between the spinal cord and the bones in your back (epidural space). The shot helps relieve pain caused by an irritated or swollen nerve root. The amount of pain relief you get from the injection depends on what is causing the nerve to be swollen and irritated, and how long your pain lasts. You are more likely to benefit from this injectionif your pain is strong and comes on suddenly rather than if you have had pain for a long time. Tell a health care provider about: Any allergies you have. All medicines you are taking, including vitamins, herbs, eye drops, creams, and tiav-kin-ufuxmqn medicines. Any problems you or family members have had with anesthetic medicines. Any blood disorders you have. Any surgeries you have had. Any medical conditions you have. Whether you are or may be . What are the risks? Generally, this is a safe procedure. However, problems may occur, including: Headache. Bleeding. Infection. Allergic reaction to medicines. Damage to your nerves. What happens before the procedure? Staying hydrated Follow instructions from your health care provider about hydration, which may include: Up to 2 hours before the procedure you may continue to drink clear liquids, such as water, clear fruit juice, black coffee, and plain tea. Eating and drinking restrictions Follow instructions from your health care provider about eating and drinking, which may include: 8 hours before the procedure stop eating heavy meals or foods such as meat, fried foods, or fatty foods. 6 hours before the procedure stop eating light meals or foods, such as toast or cereal. 6 hours before the procedure stop drinking milk or drinks that contain milk. 2 hours before the procedure stop drinking clear liquids. Medicine You may be given medicines to lower anxiety. Ask your health care provider about: ? Changing or stopping your regular medicines. This is especially important if you are taking diabetes medicines or blood thinners. ? Taking medicines such as aspirin and ibuprofen. These medicines can thin your blood. Do not take these medicines before your procedure if your health care provider instructs you not to. General instructions Plan to have someone take you home from the hospital or clinic. What happens during the procedure? You may receive a medicine to help you relax (sedative). You will be asked to lie on your abdomen. The injection site will be cleaned. A numbing medicine (local anesthetic) will be used to numb the injection site. A needle will be inserted through your skin into the epidural space. You may feel some discomfort when this happens. An X-ray machine will be used to make sure the needle is put as close as possible to the affected nerve. A steroid medicine and a local anesthetic will be injected into the epidural space. The needle will be removed. A bandage (dressing) will be put over the injection site. What happens after the procedure? Your blood pressure, heart rate, breathing rate, and blood oxygen level will be monitored until themedicines you were given have worn off. Your arm or leg may feel weak or numb for a few hours. The injection site may feel sore. Do not drive for 24 hours if you received a sedative. This information is not intended to replace advice given to you by your health care provider. Make sure you discuss any questions you have with your health care provider. Document Released: 11/22/2008 Document Revised: 07/29/2018 Document Reviewed: 12/01/2016 [employer] Patient Education 2020 [employer]. Additional Information VACCINATE! IT SAVES LIVES! Members of the community who have not yet received the COVID-19 vaccine and would like to receive it can visit one of [facility] vaccine clinics. There are many vaccine clinic locations within the [facility]. For locations and available times, please visit https://gettheshot.coronavirus.[place].gov/. It is important to note that some COVID mobile vaccine clinics are held outdoors and may be canceled in rainy or stormy conditions. To learn more about pediatric vaccinations (ages 5-11), we invite you to visit the [facility] webpage. [email or web address]/[email or web address] [email or web address] learn more about the COVID-19 vaccine, we invite you to visit the CDC website for a list of frequently asked questions.https://www.cdc.gov/coronavirus/2019-ncov/vaccines/faq.html [facility] Patient Portal Access Instructions: Stay connected with your healthcare team and access your personal medical information anytime with the [facility] Patient Portal. Please follow the directions below to create your [facility] account: 1.Access the email account you provided upon registration to the hospital/physician office.2.Look for an invitation email from [facility].3.Open the email and access the invitation link: AcceptInvitation to [facility].4.Fill in the required irizarry to create your account. To access your account, visit [employer]/Clicks for a [employer]. Click the blue button labeled Access Patient Portal and then log in with the username and password that you created in the steps above. You will be able to view your test results, lab results, a summary of your visits, upcoming appointments and more. There is also a convenient messaging option where you can send secure messages to your p rovider. In addition, you will have the ability to download any documents or summaries to your computer and/or send the information securely to a physician. Remember that your healthcare information is confidential, so carefully consider who you will allowto register on the [facility] Patient Portal for access to your information. You can also access the [facility] Patient Portal on the [facility] jacquie. Simply click on Patient Portal and then log into your account. If you would like to receive a full copy of your medical records, please contact the [facility] Medical Records Department by calling [phone], Wednesday through Wednesday between 8 a.m. and 4:30 p.m. HOW TO SAFELY DISPOSE OF PRESCRIPTION MEDICATIONS Please use one of the following methods to safely dispose of your unused medications. 1.Use a drug disposal kit: the drug disposal pouch allows you to safely discard your old and unuseddrugs. Ask your nurse to give you one when you are discharged.2.Visit a local take-back location: Many local pharmacies and police departments have programs that collect old and unwanted prescriptiondrugs. Call your local pharmacy or go to http://Workube.OurCrowd/7V8So5n to find one close to you.3.Make use of household items: Use cat litter or old coffee grounds to dispose medications if other options arenot available. Mix your drugs with these household products, seal them in an airtight container andthrow it into the garbage. Call [facility]: [phone] to be sure your drugs can be disposed of in this way. Some medicines may require a different approach.4.Never flush your medications down the toilet. IF YOU HAVE BEEN PRESCRIBED AN OPIOID FOR PAIN If you have been prescribed an opioid (such as hydrocodone, oxycodone or morphine), it is critical to understand the possible side effects and risks of opioid pain medications. Even when taken as directed, opioids can have several side effects including: Tolerance, meaning you might need to take more of a medication for the same pain relief. Nausea, vomiting and/or constipation. Sleepiness, dizziness, dry mouth, confusion, depression or itching. Physical dependence, meaning you have withdrawal symptoms when a medication is stopped, can develop within a few days. KNOW YOUR RESPONSIBILITIES It is important to know exactly how much and how often to take the opioid pain medications you are prescribed. Never take opioids in higher amounts or more often than prescribed. Do not combine opioids with alcohol or other drugs that cause drowsiness, such as benzodiazepines, also known as benzos, including diazepam and alprazolam, muscle relaxants or sleep aids. Never sell or share prescription opioids. This is illegal. Store opioids in a secure place and out of reach of others (including children, family, friends and visitors). The last page of this document has been signed and retained as a CHART COPY. Signatures Patient Education Materials Epidural Steroid Injection Medication Leaflets My discharge plan and instructions have been reviewed and explained to me and I,ASHELY GRAVES understand my current condition and have read and understand these discharge instructions. I have received a written copy of the plan/instructions. If I have questions, I am aware that I should contact my doctor. 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: Date/Time: Relationship to Patient: Witness Name/Signature: [facility] Future App[facility]ments Appointment Date:03/17/2022 03:15:00 PM Scheduled Provider:RAEANN THACKER DO Location:[facility] Appointment Type: Wellness Annual Future Scheduled Tests Laboratory* Thyroid Stimulating Hormone 09/16/21 * A1C Hemoglobin 09/16/21 * Complete Blood Count 09/16/21 * Lipid Profile 09/16/21 * Complete Metabolic Panel 09/16/21 [facility] Evaluation + Plan note Future Appointments Appointment Date:12/03/2021 08:45:00 AM Scheduled Provider:BRITT BEJARANO Location:[facility] PM Appointment Type:PM OV Appointment Date:03/17/2022 03:15:00 PM Scheduled Provider:RAEANN THACKER DO Location:[facility] Appointment Type:PC Wellness Annual Future Scheduled Tests Laboratory* Thyroid Stimulating Hormone 09/16/21 * A1C Hemoglobin 09/16/21 * Complete Blood Count 09/16/21 * Lipid Profile 09/16/21 * Complete Metabolic Panel 09/16/21 [facility] Evaluation + Plan note Future Appointments Appointment Date:03/10/2022 08:30:00 AM Scheduled Provider:ALANA PATEL MD Location:[facility] PM Appointment Type:PM OV Appointment Date:03/17/2022 03:15:00 PM Scheduled Provider:RAEANN THACKER DO Location:[facility] Appointment Type:PC Wellness Annual Future Scheduled Tests Laboratory* Thyroid Stimulating Hormone 09/16/21 * A1C Hemoglobin 09/16/21 * Complete Blood Count 09/16/21 * Lipid Profile 09/16/21 * Complete Metabolic Panel 09/16/21 [facility] Evaluation + Plan note Future Appointments Appointment Date:03/10/2022 08:30:00 AM Scheduled Provider:ALANA PATEL MD Location:[facility] PM Appointment Type:PM OV Appointment Date:03/17/2022 03:30:00 PM Scheduled Provider:RAEANN THACKER DO Location:[facility] Appointment Type:PC Wellness Annual [facility] Evaluation + Plan note Future Appointments Appointment Date:03/17/2022 03:30:00 PM Scheduled Provider:RAEANN THACKER DO Location:[facility] Appointment Type:PC Wellness Annual Appointment Date:09/08/2022 08:15:00 AM Scheduled Provider:ALANA PATEL MD Location:[facility] PM Appointment Type:PM OV [facility] Evaluation + Plan note Future Appointments Appointment Date:09/08/2022 08:15:00 AM Scheduled Provider:ALANA PATEL MD Location:[facility] PM Appointment Type:PM OV Appointment Date:09/11/2022 03:30:00 PM Scheduled Provider:RAEANN THACKER DO Location:[facility] Appointment Type:PC OV Future Scheduled Tests Laboratory* Thyroid Stimulating Hormone 09/17/22 * A1C Hemoglobin 09/17/22 * Complete Blood Count 09/17/22 * Lipid Profile 09/17/22 * Hepatitis C Antibody IgG 03/17/22 * Vitamin D Level 03/17/22 * Complete Metabolic Panel 09/17/22 [facility] Evaluation + Plan note Future Appointments Appointment Date:09/09/2022 07:45:00 AM Scheduled Provider:BRITT BEJARANO Location:[facility] PM Appointment Type:PM OV Appointment Date:09/11/2022 03:30:00 PM Scheduled Provider:RAEANN THACKER DO Location:[facility] Appointment Type:PC OV [facility] Evaluation + Plan note Future Appointments Appointment Date:09/11/2022 03:30:00 PM Scheduled Provider:RAEANN THACKER DO Location:[facility] Appointment Type:PC OV Appointment Date:03/10/2023 09:00:00 AM Scheduled Provider:BRITT BEJARANO Location:[facility] PM Appointment Type:PM OV [facility] Evaluation + Plan note Future Appointments Appointment Date:03/26/2023 01:30:00 PM Scheduled Provider:RAEANN THACKER DO Location:[facility] Appointment Type:PC OV Appointment Date:04/19/2023 02:30:00 PM Scheduled Provider:JOHN RENE MD Location:[facility] PM Appointment Type:PM OV [facility] Evaluation + Plan note Future Appointments Appointment Date:07/20/2023 09:00:00 AM Scheduled Provider:RAEANN THACKER DO Location:[facility] Appointment Type:PC Office Procedure OMT Appointment Date:07/20/2023 11:30:00 AM Scheduled Provider: Location:[facility] Appointment Type:MA Mammogram Screening Bilateral w/ Lenny Appointment Date:08/27/2023 08:30:00 AM Scheduled Provider:RAEANN THACKER DO Location:[facility] Appointment Type:PC OV Future Scheduled Tests Radiology* MA Mammo Screening Bilateral w/ Lenny 07/20/23 [facility] Hospital course Narrative No data available for this section [facility] Hospital Discharge instructions No data available for this section [facility] Progress note No data available for this section [facility] Summary Purpose Family History No Family History Records Found No data available for this section No data available for this section No data available for this section No data available for this section No Family History Records Found Advance Directives No Advanced Directives Records FoundNo Advanced Directives Records Found Additional Source Comments INFORMATION SOURCE (unrecogn ized section and content) DATE CREATED AUTHOR AUTHOR'S ORGANIZ ATION 07/26/2023 [facility] ([place]) Care Team (unrecognized sect ion and content) Personnel Name: RAEANN THACKER DO Address: [address] [place] [address] Care Team Personnel Name: RAEANN THACKER DO Position: P4 Physician - Primary Care Member Role: Primary Care Physician Address: Address: [address] [place] [address] Care Team Related Persons Name: CARLEE HALL Care Team Personnel Name: RAEANN THACKER DO Position: P4 Physician - Primary Care Member Role: Primary Care Physician Address: Address: [address] [place] [address] Care Team Related Persons Name: CARLEE HALL Care Team Personnel Name: RAEANN THACKER DO Position: P4 Physician - Primary Care Member Role: Primary Care Physician Address: Address: [address] [place] [address] Care Team Related Persons Name: CARLEE HALL Care Team Personnel Name: RAEANN THACKER DO Position: P4 Physician - Primary Care Member Role: Primary Care Physician Address: Address: [address] [place] [address]- Care Team Related Persons Name: CARLEE HALL Care Team Personnel Name: RAEANN THACKER DO Position: P4 Physician - Primary Care Member Role: Primary Care Physician Address: Address: [facility] [place] [address]- Care Team Related Persons Name: CARLEE HALL Care Team (unrecognized sect ion and content) Care Team Personnel Name: RAEANN THACKER DO Position: P4 Physician - Primary Care Med Service: Active Provider Member Role: Primary Care Physician Address: Address: [address] [place] [address]- Care Team Related Persons Name: CARLEE HALL Care Team Personnel Name: RAEANN THACKER DO Position: P4 Physician - Primary Care Med Service: Active Provider Member Role: Primary Care Physician Address: Address: [address] [place] [address]- Care Team Related Persons Name: CARLEE HALL Care Team Personnel Name: RAEANN THACKER DO Position: P4 Physician - Primary Care Member Role: Primary Care Physician Address: Address: [address] [place] [id number]- Care Team Related Persons Name: CARLEE HALL Care Team Personnel Name: RAEANN THACKER DO Position: P4 Physician - Primary Care Member Role: Primary Care Physician Address: Address: [facility] [place] [address]- Care Team Related Persons Name: CARLEE HALL Care Team Personnel Name: RAEANN THACKER DO Position: P4 Physician - Primary Care Member Role: Primary Care Physician Address: Address: [facility] [place] [id number]- Care Team Related Persons Name: CARLEE HALL FOR RECORDS PERTAINING TO PATIENTS WHO ARE OR HAVE BEEN ENROLLED IN A CHEMICAL DEPENDENCY/SUBSTANCEABUSE PROGRAM, SOME INFORMATION MAY BE OMITTED. This clinical summary was aggregated from multiple sources. Caution should be exercised in using it in the provision of clinical care. This summary normalizes information from multiple sources, and as a consequence, information in this document may materially change the coding, format and clinical context of patient data. In addition, data may be omitted in some cases. CLINICAL DECISIONS SHOULD BE BASED ON THE PRIMARY CLINICAL RECORDS. [facility] [employer] [facility]. provides no warranty or guarantee of the accuracy or completeness of information in this document.
--- NOTE | 2023-09-03 07:20 | CT_ITS ---
STUDY: CT CHEST WITHOUT CONTRAST REASON FOR EXAM: Female, 58 years old. Family history of ischemic heart disease and other diseases of th RADIATION DOSAGE (If Supplied By Facility): CTDIvol = ( 12.19 ) mGy, DLP = ( 243.79 ) mGycm TECHNIQUE: Transaxial imaging was performed without the administration of intravenous contrast material. Individualized dose optimization techniques were used for this CT. COMPARISON: No relevant priors. FINDINGS: CHEST Mild degree of increased markings at the lung bases suggestive of atelectasis. There is no demonstrated pleural abnormality. There are minimal calcifications of the coronary arteries. There are small lymph nodes within the mediastinum, which are normal in size and morphology most compatible with reactive lymph hyperplasia. Normal hilar regions. Normal unenhanced pulmonary arteries. Mild degree of atherosclerotic calcification of the aortic arch. Normal osseous structures. There is no demonstrated abnormality of the visualized upper abdomen. CT/Limited Chest CT Cardiac Only IMPRESSION: Minimal coronary artery calcification of the left coronary artery. Electronically Signed: Corbin Waller MD at 13:00 EST ,
--- OUTSIDE RECORDS SUMMARY | 2023-09-03 07:24 | XMS RPT_ITS | CCD ---
Author Name Unknown Address [address] [place] [address] Organization [employer] Care Team Providers Care Hvac Instructor Name Role Phone [email or web address], physician Unavailable Unavailable [...] BID, # 60 cap(s), 5 Refill(s), Pharmacy: [facility] 181, Cervical spondylosis without myelopathy, 172, [...] Non-Invasive [address] MALLORY JANG MD [facility] 04-23-2023 09:02-0400 Heart rate 75 /min DR MALLORY JANG MD [facility] 04-23-2023 09:02-0400 Respiratory rate 16 /min DR MALLORY JANG MD [facility] 04-23-2023 09:02-0400 Systolic Blood Pressure Non-Invasive [address] MALLORY JANG MD [facility] 04-23-2023 08:57-0400 Body temperature 97.7 [degF] DR MALLORY JANG MD [facility] 04-23-2023 08:57-0400 Diastolic Blood Pressure Non-Invasive [address] MALLORY JANG MD [facility] 04-23-2023 08:57-0400 Heart rate 75 /min DR MALLORY JANG MD [facility] 04-23-2023 08:57-0400 Respiratory rate 18 /min DR MALLORY JANG MD [facility] 04-23-2023 08:57-0400 Systolic Blood Pressure Non-Invasive [address] MALLORY JANG MD [facility] 04-23-2023 08:50-0400 Diastolic Blood Pressure Non-Invasive [address] MALLORY JANG MD [facility] 04-23-2023 08:50-0400 Heart rate 73 /min DR MALLORY JANG MD [facility] 04-23-2023 08:50-0400 Respiratory Rate - Anes 15 br/min DR MALLORY JANG MD [facility] 04-23-2023 08:50-0400 Systolic Blood Pressure Non-Invasive [address] MALLORY JANG MD [facility] 04-23-2023 08:45-0400 Respiratory Rate - Anes 16 br/min DR MALLORY JANG MD [facility] 04-23-2023 08:40-0400 Respiratory Rate - Anes 15 br/min DR MALLORY JANG MD [facility] 04-23-2023 07:47-0400 Body height 172.[address] MALLORY JANG MD [facility] 04-23-2023 07:47-0400 Body temperature 98.42 [degF] DR MALLORY JANG MD [facility] 04-23-2023 07:47-0400 Body weight 84.[address] MALLORY JANG MD [facility] 04-23-2023 07:47-0400 Heart rate 110 /min DR MALLORY JANG MD [facility] 04-23-2023 07:47-0400 Respiratory rate 15 /min DR MALLORY JANG MD [facility] 03-15-2023 11:55-0400 Diastolic Blood Pressure Non-Invasive 77 1 JOHN RENE MD [facility] 03-15-2023 11:55-0400 Heart rate 82 /min JOHN RENE MD [facility] 03-15-2023 11:55-0400 Respiratory rate 18 /min JOHN RENE MD [facility] 03-15-2023 11:55-0400 Systolic Blood Pressure Non-Invasive 142 1 JOHN RENE MD [facility] 03-15-2023 11:24-0400 Blood Pressure Cuff Size JOHN RENE MD [facility] 03-15-2023 11:24-0400 Blood Pressure Location JOHN RENE MD [facility] 03-15-2023 11:24-0400 Blood Pressure Method JOHN RENE MD [facility] 03-15-2023 11:24-0400 Body height 172.7 cm JOHN RENE MD [facility] 03-15-2023 11:24-0400 Body temperature 97.16 [degF] JOHN RENE MD [facility] 03-15-2023 11:24-0400 Body weight 84.1 kg JOHN RENE MD [facility] 03-15-2023 11:24-0400 Body weight 28.2 kg/m2 JOHN RENE MD [facility] 03-15-2023 11:24-0400 Diastolic Blood Pressure Non-Invasive 99 1 JOHN RENE MD [facility] 03-15-2023 11:24-0400 Heart rate 86 /min JOHN RENE MD [facility] 03-15-2023 11:24-0400 Respiratory rate 19 /min JOHN RENE MD [facility] 03-15-2023 11:24-0400 Systolic Blood Pressure Non-Invasive 146 1 JOHN RENE MD [facility] Encounters Encounter Date Encounter Type Care Provider Facility Start: 07-20-2023 End: 07-21-[address] RAEANN THACKER DO Facility:B Start: 07-20-2023 End: 07-20-[address] RAEANN THACKER DO [facility] Start: 07-02-2023 End: 07-03-[address] RAEANN THACKER DO Facility:[facility] Start: 07-02-2023 End: 07-02-[address] RAEANN THACKER DO [facility] Start: 06-08-2023 End: 07-14-2023 ambulatory AZAEL LARSON PA-C Facility:[facility] Start: 04-23-2023 End: 04-23-[address] MALLORY JANG MD Facility:[facility] Start: 04-23-2023 End: 04-23-[address] MALLORY JANG MD [facility] Start: 03-15-2023 End: 03-16-[address] RAEANN THACKER DO Facility:[facility] Start: 03-15-2023 End: 03-15-2023 SAME DAY STAY JOHN RENE MD [facility] Start: 02-15-2023 End: 02-16-2023 ambulatory JOHN RENE MD Facility:[facility] Start: 01-20-2023 End: 01-21-2023 ambulatory JOHN RENE MD Facility:[facility] Start: 09-09-2022 End: 09-10-2022 ambulatory BRITT BEJARANO DIAGNOSTIC SALES SPECIALIST-PILOT FUEL ENGINEER Facility:[facility] Start: 09-08-2022 End: 09-09-[address] RAEANN THACKER DO Facility:[facility] Start: 09-08-2022 End: 09-09-[address] RAEANN TAHCKER DO [facility] Start: 06-27-2022 End: 06-27-[address] RAEANN THACKER DO [facility] Start: 03-10-2022 End: 03-10-2022 Patient encounter procedure ALANA PATEL MD [facility] Start: 03-06-2022 End: 03-06-[address] RAEANN THACKER DO [facility] Start: 12-09-2021 End: 12-09-2021 Patient encounter procedure ALANA PATEL MD [facility] Start: 10-28-2021 End: 10-28-2021 Patient encounter procedure ALANA PATEL MD [facility] Start: 10-14-2021 End: 10-14-2021 Patient encounter procedure YOVANI PHILLIPS DO [facility] Start: 06-28-2017 Ambulatory physician [facility] Procedures Date Procedure Procedure Detail [...] Immunizations Immunization Date Immunization Notes Care Provider [facility] 06-04-2023 influenza virus vaccine, unspecified formulation DR RAEANN THACKER DO [facility] 06-04-2023 SARS-CoV-2 (COVID-19 ) mRNAMUL.[id number] DR RAEANN THACKER DO [facility] 05-25-[address] RAEANN THACKER DO [facility] 03-26-[address] RAEANN THACKER DO [facility] 09-11-2022 COVID-19, mRNA, LNP- S, bivalent booster, PF, 30 mcg/0.3 mL dose; Translations: [Dynamic Signal-Adiana COVID-19 (12y+) Bivalent Booster Vaccine PF] JOHN RENE MD [facility] 07-22-2022 influenza virus vaccine, unspecified formulation DR RAEANN THACKER DO [facility] 03-17-2022 COVID-19, mRNA, LNP- S, PF, 100 mcg or 50 mcg dose; Translations: [Moderna COVID-19 Vaccine] DR RAEANN THACKER DO [facility] 09-02-2021 SARS-CoV-2 (COVID-19 ) mRNA-1273 vaccine YOVANI PHILLIPS DO [facility] 11-27-2020 SARS-CoV-2 (COVID-19 ) mRNA-1273 vaccine YOVANI PHILLIPS DO [facility] 10-30-2020 SARS-CoV-2 (COVID-19 ) mRNA-1273 vaccine YOVANICYNTHIA PHILLIPS DO [facility] Payers Date Payer Category Payer Unknown [id number] 1965 Unknown [id number] 2.16.8 [id number] 1965 Unknown [id number] 2.16.8 [id number] 1965 Unknown [id number] 2.16.8 [id number] 1965 Unknown [id number] 2.16.8 [id number] 1965 Unknown [id number] 2.16.8 [id number] 1965 Unknown [id number] 2.16.8 [id number] 1965 Unknown [id number] 2.16.8 [id number] 1965 Unknown [id number] 2.16.8 [id number] 1965 Unknown [id number] 2.16.8 [id number] 1965 Unknown [id number] 2.16.8 [id number] Private Health Insurance Social History Date Type Detail Facility Start: 08-02-2019 Never smoked tobacco (f inding) [facility] Functional Status Date Assessment Result Facility 04-23-2023 Functional Status Repositioned back [facility] 04-23-2023 Functional Status Maintained [facility] 03-15-2023 Functional Status Awake [facility] Mental Status Date Assessment Result Facility 04-23-2023 Mental Status Oriented x 4 [facility] 03-15-2023 Mental Status Oriented x 4 [facility] Clinical Notes 03-15-2023 to 07-20-2023 Radiology Note Date & Type Note Facility 07-20-2023 Evaluation + Plan note Future Scheduled TestsCT Coronary Calcium Score w/o Contrast [facility] [place] [facility] H[facility] AN D PHYSICIAL CHIEF COMPLAINT: HISTORY OF PRESENT ILLNESS: REVIEW OF SYSTEMS: ACTIVE PROBLEMS: (24) Anxiety (50499133) BMI 29.0-29.9,adult (7781673776) Carpal tunnel syndrome (74143198) Cervical spondylosis without myelopathy (535620366) Cervical stenosis of spine (404920482) CKD (chronic kidney disease) stage 3, GFR 30-59 ml/min (3521906437) DDD (degenerative disc disease), cervical (980321610) Dysphagia (60386712) Hiatal hernia (473878810) HLD (hyperlipidemia) (23337859) Hyperglycemia (112169690) Lipoma (861993804) Low back pain (950965977) Major depressive disorder in remission (65336301) Migraine (55369836) Neck pain (143536985) Neural foraminal stenosis of cervical spine (2332356309) Non-tobacco user (7075319139) Overweight (520368665) Primary insomnia (2477668) Somatic dysfunction of cervical region (2617155294) Somatic dysfunction of rib region (8171817766) Somatic dysfunction of thoracic region (3754353975) Somatic dysfunction of upper extremity (1077709449) MEDICATIONS: Active Inpt Meds: None Active PRN [...] FAMILY HISTORY: SOCIAL HISTORY: PHYSICAL EXAM: VITALS: KxxeqvZicoHPEdegkVHEpF3BSD3DhwtXd(kg) 04/23 08:50----73--98.5--04/23 84.4 04/23 08:45----71--98.5-- 04/23 08:40----73--98.8-- [...] Appointments Appointment Date:06/28/2023 03:30:00 PM Scheduled Provider: Location:[facility] Appointment Type:MA Mammogram Screening Bilateral w/ Lenny Appointment Date:08/27/2023 08:30:00 AM Scheduled Provider:RAEANN THACKER DO Location:[facility] Appointment Type:[facility] Future Scheduled Tests Laboratory* Thyroid Stimulating Hormone 09/26/23 * A1C Hemoglobin 09/26/23 * Complete Blood Count 09/26/23 * Lipid Profile 09/26/23 * Vitamin D Level 09/26/23 * Complete Metabolic Panel 09/26/23 Radiology* MA Mammo Screening Bilateral w/ Lenny 06/28/23 [facility] 08-25-2023 Hospital Discharge instructions Patient Education 04/23/2023 [...] before eating solid foods. General instructions Take wioc-ogp-jcxyezn and prescription medicines only as told by [...] 12/06/2016 Document Revised: 11/14/2018 Document Reviewed: 12/06/2016 [employer] Patient Education 2020 [employer]. 04/23/2023 09:06:50 Colonoscopy, Adult, Care After Colonoscopy, [...] a slower pace than normal. ?Eat soft, tlpw-yn-nndarn foods. Take qbha-fwz-sxxnost or prescription medicines only as told by [...] 03/30/2005 Document Revised: 06/08/2018 Document Reviewed: 10/27/2016 [employer] Patient Education 2020 [employer]. Follow Up Care 04/19/2023 12:09:25 With:MALLORY JANG MD Address: [address] [facility] [address] [place] [address] [phone] When: only if needed [facility] 08-25-2023 Summary of episode note Discharge Instructions Thank you for allowing [facility] to assist you with your healthcare needs. The following is importantdischarge information regarding your hospital visit. Your Care Team RAEANN THACKER DO What to do next Scheduled Follow-Up Appointments Appointment Type When With Where Contact InformationMA Mammogram Screening Bilateral w/ Lenny 06/28/2023 03:30 PM EDT [facility] [phone] PC OV 08/27/2023 08:30 AM EST RAEANN THACKER DO [facility] [address] [phone] Follow Up Appointments Follow Up with MALLORY JANG MD When Only if needed Where: [address] [facility] [address] [place] [address] [phone] The Following Activity and Diet Have Been [...] before eating solid foods. General instructions Take lhwi-agb-viaqmkl and prescription medicines only as told by [...] 12/06/2016 Document Revised: 11/14/2018 Document Reviewed: 12/06/2016 [employer] Patient Education 2020 [employer] Colonoscopy, Adult, Care After This sheet [...] slower pace than normal. ? Eat soft, cdqw-re-ljfdox foods. Take wbbc-hlg-funtomb or prescription medicines only as told by [...] 03/30/2005 Document Revised: 06/08/2018 Document Reviewed: 10/27/2016 [employer] Patient Education 2020 [employer]. Additional Information VACCINATE! IT SAVES LIVES! Members of the community who have not yet received the COVID-19 vaccine and would like to receive it can visit one of [facility] vaccine clinics. There are many vaccine clinic locations within the [facility]. For locations and available times, please visit [email or web address].gov/. It is important to note that some COVID mobile vaccine clinics are held outdoors and may be canceled in rainy or stormy conditions. To learn more about pediatric vaccinations (ages 5-11), we invite you to visit the [facility] webpage. https://www.[facility].org/pages/2719-Gqoia-Ryowcfpkdyv-Jpdlqtopdt-Kkcxn-Kig stions.htmlTo learn more about the COVID-19 vaccine, we invite you to visit the CDC website for a list of frequently asked questions.https://www.cdc.gov/coronavirus/2019-ncov/vaccines/faq.html [employer] Patient Portal Access Instructions: Stay connected with your healthcare team and access your personal medical information anytime with the [employer] Patient Portal. Please follow the directions below to create your [employer] account: 1.Access the email account you provided upon registration to the hospital/physician office.2.Look for an invitation email from [facility].3.Open the email and access the invitation link: AcceptInvitation to [employer].4.Fill in the required irizarry to create your account. To access your account, visit [employer][email or web address]. Click the blue button labeled Access Patient Portal and then log in with the username and password that you created in the steps above. You will be able to view your test results, lab results, a summary of your visits, upcoming appointments and more. There is also a convenient messaging option where you can send secure messages to your p Soluble Systemsvider. In addition, you will have the ability to download any documents or summaries to your computer and/or send the information securely to a physician. Remember that your healthcare information is confidential, so carefully consider who you will allowto register on the [employer] Patient Portal for access to your information. You can also access the [employer] Patient Portal on the [employer] [facility] jacquie. Simply click on Patient Portal and then log into your account. If you would like to receive a full copy of your medical records, please contact the [facility] Medical Records Department by calling [phone], Wednesday through Wednesday between 8 a.m. and [...] Call your local pharmacy or go to [email or web address] to find one close to you.3.Make use of household items: Use cat litter or old coffee grounds to dispose medications if other options arenot available. Mix your drugs with these household products, seal them in an airtight container andthrow it into the garbage. Call [facility]: [phone] to be sure your drugs can be [...] aware that I should contact my doctor. Patient/Adjunct Psychology Instructor Signature: Date/Time: Relationship to Patient: Witness Name/Signature: Date/Time: [facility]2023 Anesthesiology Consult note Patient: ASHELY GRAVES Age: [...] by RICHMOND GILMORE on 04/23/2023 09:01 AM [facility]2023 Note [place] ADMISSION HISTORY AND PHYSICIAL CHIEF COMPLAINT: HISTORY OF PRESENT ILLNESS: REVIEW OF SYSTEMS: ACTIVE PROBLEMS: (24) Anxiety (73877607) BMI 29.0-29.9,adult (9534077551) Carpal tunnel syndrome (39292933) Cervical spondylosis without myelopathy (208594235) Cervical stenosis of spine (288552438) CKD (chronic kidney disease) stage 3, GFR 30-59 ml/min (8694410075) DDD (degenerative disc disease), cervical (053661517) Dysphagia (52839239) Hiatal hernia (095888483) HLD (hyperlipidemia) (69490956) Hyperglycemia (646550359) Lipoma (264244367) Low back pain (325195493) Major depressive disorder in remission (51238112) Migraine (26964812) Neck pain (825586553) Neural foraminal stenosis of cervical spine (8075883391) Non-tobacco user (4247576650) Overweight (652264830) Primary insomnia (6023522) Somatic dysfunction of cervical region (6941939107) Somatic dysfunction of rib region (1466332858) Somatic dysfunction of thoracic region (9632965133) Somatic dysfunction of upper extremity (2660139535) MEDICATIONS: Active Inpt Meds: None Active PRN [...] FAMILY HISTORY: SOCIAL HISTORY: PHYSICAL EXAM: VITALS: AotlqkDfqyPIXlqvuHGKoV4YGN4KseaQv(kg) 04/23 08:50----73--98.5--04/23 84.4 04/23 08:45----71--98.5-- 04/23 08:40----73--98.8-- [...] MALLORY JANG MD on 04/23/2023 08:54 AM [facility] Anesthesiology Consult note Patient: ASHELY GRAVES Age: [...] Problem list: Medical Anxiety / SNOMED CT 04572488 / Confirmed Carpal tunnel syndrome / SNOMED CT 28894050 / Confirmed Somatic dysfunction of cervical region / SNOMED CT 0355748110 / Confirmed Cervical spondylosis without myelopathy / SNOMED CT 402124444 / Confirmed CKD (chronic kidney disease) stage 3, GFR 30-59 ml/min / SNOMED CT 8248193044 / Confirmed DDD (degenerative disc disease), cervical / SNOMED CT 784736068 / Confirmed Dysphagia / SNOMED CT 13053809 / Confirmed Non-tobacco user / SNOMED CT 6420310795 / Confirmed Hiatal hernia / SNOMED CT 737589598 / Confirmed Hyperglycemia / SNOMED CT 464948557 / Confirmed HLD (hyperlipidemia) / SNOMED CT 61855773 / Confirmed Lipoma / SNOMED CT 951068025 / Confirmed Low back pain / SNOMED CT 601615821 / Confirmed Major depressive disorder in remission / SNOMED CT 91250006 / Confirmed Migraine / SNOMED CT 16721289 / Confirmed Neck pain / SNOMED CT 401597564 / Confirmed Overweight / SNOMED CT 525006053 / Confirmed BMI 29.0-29.9,adult / SNOMED CT 3430823143 / Confirmed Primary insomnia / SNOMED CT 3692388 / Confirmed Somatic dysfunction of rib region / SNOMED CT 2204914376 / Confirmed Somatic dysfunction of thoracic region / SNOMED CT 4411322456 / Confirmed Somatic dysfunction of upper extremity / SNOMED CT 0450073501 / Confirmed Cervical stenosis of spine / SNOMED CT 908497418 / Confirmed Neural foraminal stenosis of cervical spine / SNOMED CT 9294960175 / Confirmed, Active Problems (24) Anxiety BMI [...] Histories Past Medical History: Resolved Cervical radiculopathy (504392704): Resolved., migraines, GERD, CKD stage 3 Family History: Diabetes Father Procedure history: PM Inj Spine C/T With Imaging SN on 03/15/2023 at 57 Years. Comments: 03/15/2023 11:51 Nirmal Ramos RN auto-populated from documented surgical case Other ([id number]). 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 Dysphagia (35330621). 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 Social History Social & Psychosocial Habits Alcohol 03/26/2023 Use: Current Type: Wine Frequency: Daily Substance Abuse 03/26/2023 Use: Never Tobacco 03/26/2023 Tobacco Use: Never (less than 100 in l Comment: No Tobacco/Smoke Exposure - 08/02/2019 11:06 - Jina Ann [facility] Home/Environment 03/26/2023 Primary Retirement Consultant: Self 03/26/2023 Living situation: Home/Independent Primary Retirement Consultant: Lives alone Nutrition/Health 03/26/2023 Caffeine intake amount: [...] Void 04/23/2023 7:43 . Assessment and Plan [place] [employer] Anesthesiologists (ASA) physical status classification: Class II. Anesthetic Preoperative Plan Premedication: None. Anesthetic technique: MAC. Postoperative pain management: Per surgeon. Risks discussed: nausea, vomiting, headache, sore throat, dental injury, hypotension, allergic reaction, serious complications. Informed consent: signed by patient. Digitally Signed by RICHMOND GILMORE APRN-SABINA on 04/23/2023 07:46 AM [facility]-17-2023 Note ORIGINAL Images acquired, not reported on this accession number. [facility]2023 Note ORIGINAL Images acquired, not reported on this accession number.[facility]17[facility]2023 Hospital Discharge instructions Patient Education 03/15/2023 11:57:27 [...] including vitamins, herbs, eye drops, creams, and bavo-xyp-tuzxgvx medicines. Any problems you or family members [...] 11/22/2008 Document Revised: 07/29/2018 Document Reviewed: 12/01/2016 [employer] Patient Education 2020 [employer]. [facility] 07-17-2023 Summary of episode note Discharge Instructions Thank you for allowing [facility] to assist you with your healthcare needs. The following is importantdischarge information regarding your hospital visit. Your Care Team RAEANN THACKER DO Your Diagnosis Cervical stenosis of spine What to do next Scheduled Follow-Up Appointments Appointment Type When With Where Contact InformationPC OV 03/26/2023 01:30 PM EDT RAEANN THACKER DO [facility] [address] [phone] PM OV 04/19/2023 02:30 PM EDT JOHN RENE MD [facility] Pain Management Allergies NKA Medications Please [...] including vitamins, herbs, eye drops, creams, and gnuh-luk-osmlwrg medicines. Any problems you or family members [...] 11/22/2008 Document Revised: 07/29/2018 Document Reviewed: 12/01/2016 [employer] Patient Education 2020 [employer]. Additional Information VACCINATE! IT SAVES LIVES! Members of the community who have not yet received the COVID-19 vaccine and would like to receive it can visit one of [facility] vaccine clinics. There are many vaccine clinic locations within the [facility]. For locations and available times, please visit [email or web address].gov/. It is important to note that some COVID mobile vaccine clinics are held outdoors and may be canceled in rainy or stormy conditions. To learn more about pediatric vaccinations (ages 5-11), we invite you to visit the [facility] webpage. https://www.[facility].org/pages/5643-Boggm-Kwrzjrlgutr-Oxiezjmqor-Zzcdt-Lwt stions.htmlTo learn more about the COVID-19 vaccine, we invite you to visit the CDC website for a list of frequently asked questions.https://www.cdc.gov/coronavirus/2019-ncov/vaccines/faq.html [employer] Patient Portal Access Instructions: Stay connected with your healthcare team and access your personal medical information anytime with the [employer] Patient Portal. Please follow the directions below to create your [employer] account: 1.Access the email account you provided upon registration to the hospital/physician office.2.Look for an invitation email from [facility].3.Open the email and access the invitation link: AcceptInvitation to [employer].4.Fill in the required irizarry to create your account. To access your account, visit [email or web address]. Click the blue button labeled Access Patient [...] who you will allowto register on the [facility] Patient Portal for access to your information. You can also access the [facility] Patient Portal on the [facility] jacquie. Simply click on Patient Portal and then log into your account. If you would like to receive a full copy of your medical records, please contact the [facility] Medical Records Department by calling [phone], Wednesday through Wednesday between 8 a.m. and [...] Call your local pharmacy or go to [email or web address] to find one close to you.3.Make use of household items: Use cat litter or old coffee grounds to dispose medications if other options arenot available. Mix your drugs with these household products, seal them in an airtight container andthrow it into the garbage. Call [facility]: [phone] to be sure your drugs can be [...] aware that I should contact my doctor. Patient/Adjunct Psychology Instructor Signature: Date/Time: Relationship to Patient: Witness Name/Signature: [facility] Appointment Date:03/17/2022 03:15:00 PM Scheduled Provider:RAEANN THACKER DO Location:[facility] Appointment Type: Wellness Annual Future Scheduled Tests Laboratory* Thyroid Stimulating Hormone 09/16/21 * A1C Hemoglobin 09/16/21 * Complete Blood Count 09/16/21 * Lipid Profile 09/16/21 * Complete Metabolic Panel 09/16/21 [facility] Evaluation + Plan note Future Appointments Appointment Date:12/03/2021 08:45:00 AM Scheduled Provider:BRITT BEJARANO Location:[facility] PM Appointment Type:PM OV Appointment Date:03/17/2022 03:15:00 PM Scheduled Provider:RAEANN THACKER DO Location:[facility] Appointment Type:PC Wellness Annual Future Scheduled Tests Laboratory* Thyroid Stimulating Hormone 09/16/21 * A1C Hemoglobin 09/16/21 * Complete Blood Count 09/16/21 * Lipid Profile 09/16/21 * Complete Metabolic Panel 09/16/21 [facility] Evaluation + Plan note Future Appointments Appointment Date:03/10/2022 08:30:00 AM Scheduled Provider:ALANA PATEL MD Location:[facility] PM Appointment Type:PM OV Appointment Date:03/17/2022 03:15:00 PM Scheduled Provider:RAEANN THACKER DO Location:[facility] Appointment Type:PC Wellness Annual Future Scheduled Tests Laboratory* Thyroid Stimulating Hormone 09/16/21 * A1C Hemoglobin 09/16/21 * Complete Blood Count 09/16/21 * Lipid Profile 09/16/21 * Complete Metabolic Panel 09/16/21 [facility] Evaluation + Plan note Future Appointments Appointment Date:03/10/2022 08:30:00 AM Scheduled Provider:ALANA PATEL MD Location:[facility] PM Appointment Type:PM OV Appointment Date:03/17/2022 03:30:00 PM Scheduled Provider:RAEANN THACKER DO Location:[facility] Appointment Type:PC Wellness Annual [facility] Evaluation + Plan note Future Appointments Appointment Date:03/17/2022 03:30:00 PM Scheduled Provider:RAEANN THACKER DO Location:[facility] Appointment Type:PC Wellness Annual Appointment Date:09/08/2022 08:15:00 AM Scheduled Provider:ALANA PATEL MD Location:[facility] PM Appointment Type:PM OV [facility] Evaluation + Plan note Future Appointments Appointment Date:09/08/2022 08:15:00 AM Scheduled Provider:ALANA PATEL MD Location:[facility] PM Appointment Type:PM OV Appointment Date:09/11/2022 03:30:00 PM Scheduled Provider:RAEANN THACKER DO Location:[facility] Appointment Type:PC OV Future Scheduled Tests Laboratory* Thyroid Stimulating Hormone 09/17/22 * A1C Hemoglobin 09/17/22 * Complete Blood Count 09/17/22 * Lipid Profile 09/17/22 * Hepatitis C Antibody IgG 03/17/22 * Vitamin D Level 03/17/22 * Complete Metabolic Panel 09/17/22 [facility] Evaluation + Plan note Future Appointments Appointment Date:09/09/2022 07:45:00 AM Scheduled Provider:BRITT BEJARANO Location:[facility] PM Appointment Type:PM OV Appointment Date:09/11/2022 03:30:00 PM Scheduled Provider:RAEANN THACKER DO Location:[facility] Appointment Type:PC OV [facility] Evaluation + Plan note Future Appointments Appointment Date:09/11/2022 03:30:00 PM Scheduled Provider:RAEANN THACKER DO Location:[facility] Appointment Type:PC OV Appointment Date:03/10/2023 09:00:00 AM Scheduled Provider:BRITT BEJARANO Location:[facility] PM Appointment Type:PM OV [facility] Evaluation + Plan note Future Appointments Appointment Date:03/26/2023 01:30:00 PM Scheduled Provider:RAEANN THACKER DO Location:[facility] Appointment Type:PC OV Appointment Date:04/19/2023 02:30:00 PM Scheduled Provider:JOHN RENE MD Location:[facility] PM Appointment Type:PM OV [facility] Evaluation + Plan note Future Appointments Appointment Date:07/20/2023 09:00:00 AM Scheduled Provider:RAEANN THACKER DO Location:[facility] Appointment Type:PC Office Procedure OMT Appointment Date:07/20/2023 11:30:00 AM Scheduled Provider: Location:[facility] Appointment Type:MA Mammogram Screening Bilateral w/ Lenny Appointment Date:08/27/2023 08:30:00 AM Scheduled Provider:RAEANN THACKER DO Location:[facility] Appointment Type:PC OV Future Scheduled Tests Radiology* MA Mammo Screening Bilateral w/ Lenny 07/20/23 [facility] Hospital course Narrative No data available for this section [facility] Hospital Discharge instructions No data available for this section [facility] Progress note No data available for this section [facility] Summary Purpose Family History No Family History [...] DATE CREATED AUTHOR AUTHOR'S ORGANIZ ATION 07/26/2023 [facility] Care Team (unrecognized sect ion and content) Personnel Name: RAEANN THACKER DO Address: [address] [place] [address] Care Team Personnel Name: RAEANN THACKER DO Position: P4 Physician - Primary Care Member Role: Primary Care Physician Address: Address: [address] [place] [address] Care Team Related Persons Name: CARLEE HALL Care Team Personnel Name: RAEANN THACKER DO Position: P4 Physician - Primary Care Member Role: Primary Care Physician Address: Address: [address] [place] [address] Care Team Related Persons Name: CARLEE HALL Care Team Personnel Name: RAEANN THACKER DO Position: P4 Physician - Primary Care Member Role: Primary Care Physician Address: Address: [address] [place] [address] Care Team Related Persons Name: CARLEE HALL Care Team Personnel Name: RAEANN THACKER DO Position: P4 Physician - Primary Care Member Role: Primary Care Physician Address: Address: [address] [place] [address]- Care Team Related Persons Name: CARLEE HALL Care Team Personnel Name: RAEANN THACKER DO Position: P4 Physician - Primary Care Member Role: Primary Care Physician Address: Address: [facility] [place] [address]- Care Team Related Persons Name: CARLEE HALL Care Team (unrecognized sect ion and content) Care Team Personnel Name: RAEANN THACKER DO Position: P4 Physician - Primary Care Med Service: Active Provider Member Role: Primary Care Physician Address: Address: [address] [place] [address]- Care Team Related Persons Name: CARLEE HALL Care Team Personnel Name: RAEANN THACKER DO Position: P4 Physician - Primary Care Med Service: Active Provider Member Role: Primary Care Physician Address: Address: [address] [place] [address]- Care Team Related Persons Name: CARLEE HALL Care Team Personnel Name: RAEANN THACKER DO Position: P4 Physician - Primary Care Member Role: Primary Care Physician Address: Address: [address] [place] [address]- Care Team Related Persons Name: CARLEE HALL Care Team Personnel Name: RAEANN THACKER DO Position: P4 Physician - Primary Care Member Role: Primary Care Physician Address: Address: [facility] [place] [address]- Care Team Related Persons Name: CARLEE HALL Care Team Personnel Name: RAEANN THACKER DO Position: P4 Physician - Primary Care Member Role: Primary Care Physician Address: Address: [facility] [place] [id number]- Care Team Related Persons Name: CARLEE HALL [...] BE BASED ON THE PRIMARY CLINICAL RECORDS. [facility] [employer] [facility]. provides no warranty or guarantee of the accuracy or completeness of information in this document.
--- NOTE | 2023-09-03 12:33 | CA.SCORE ---
Calcium Scoring Date of Study:: 09/03/23 Indications Indications: Family history of ischemic heart disease Coronary Calcium Scoring: High-resolution Computed Tomographic imaging of the chest was performed on [09/03/2023], with particular attention paid to the coronary arteries. Images from the examination were analyzed for the presence and extent of coronary artery calcification , using coronary calcium quantification software. The patient tolerated the procedure well and there were no complications. The results of the coronary calcification analysis are provided below. Findings Coronary Artery Left Main (LM): 0 Left Anterior Descending (LAD): 0 Left Circumflex (LCX): 0 Right Coronary Artery (RCA): 0 Total Agatston Score: 0 Percentile Rankin Calcium Scoring Interpretation: Different methods to categorize the overall amount of coronary plaque. Overall amount CAC SIS Visual of coronary plaque P1 Mild -100 <2 1-2 vessels with mild amount of plaque P2 Moderate 101-300 3-4 1-2 vessels with moderate amount, 3 vessels with mild amount of plaque P3 Severe 301-999 5-7 3 vessels with moderate amount, 1 vessel with severe amount of plaque P4 Extensive >1000 >8 2-3 vessels with severe amount of plaque Conclusion: No significant atherosclerotic plaquing noted.
== END | disposition home or self-care (01) ==
DX: I25.10 Atherosclerotic heart disease of native coronary artery without angina pectoris (principal); Z82.49 Family history of ischemic heart disease and other diseases of the circulatory system
CPT/HCPCS: 75571; 76380